=== PATIENT | female | born 1995 | race Two or more races ===

== ENCOUNTER → 2024-09-06 | Outpatient (CLI) | payer BC, SELFPAY ==
[2024-09-06 11:24] LABS: Basophils % (Auto) 0 % (0-2.5); Eosinophils # (Auto) 0.1 Thou/mm3 (0.0-0.5); Eosinophils % (Auto) 1 % (0-10); Hematocrit 36.5 % (36.0-46.0); Hemoglobin 12.1 g/dL (12.0-16.0); Immature Granulocytes % (Auto) 1 % (0-0); Immature Granulocytes Auto 0.07 Thou/mm3 (0.00-0.00); Lymphocytes # (Auto) 1.5 Thou/mm3 (1.0-4.8); Lymphocytes % (Auto) 15 % (10-50); Mean Corpuscular HGB Conc 33.2 g/dl (31.0-37.0); Mean Corpuscular Hemoglobin 30.5 pg (25.0-35.0); Mean Corpuscular Volume 92 fL (80-100); Monocytes # (Auto) 0.6 Thou/mm3 (0.0-0.8); Monocytes % (Auto) 6 % (0-12); Neutrophils # (Auto) 7.7 Thou/mm3 (1.8-7.7); Neutrophils % (Auto) 77 % (37-80); Nucleated Red Blood Cell % 0 /100 WBC (0); Platelet Count 211 Thou/mm3 (140-440); RDW Standard Deviation 41.6 fL (36.4-46.3); Red Blood Count 3.97 Miln/mm3 (4.00-5.20)
[2024-09-06 11:47] LABS: Alanine Aminotransferase 8 U/L (10-49); Albumin, Serum 4.1 gm/dL (3.5-5.0); Albumin/Globulin Ratio 1.6 (1.2-2.2); Alkaline Phosphatase 97 U/L (46-116); Amylase 74 U/L (30-118); Anion Gap 5 (7-16); Aspartate Amino Transferase 12 U/L (0-34); BUN/Creatinine Ratio 14 Ratio (12-20); Bilirubin,Total 0.3 mg/dL (0.3-1.2); Blood Urea Nitrogen 7 mg/dL (9-23); Calcium 9.3 mg/dL (8.3-10.6); Calcium (Corrected) 9.3 mg/dL (8.5-10.1); Carbon Dioxide 27.2 mMol/L (20.0-31.0); Chloride 107 mMol/L (98-107); Creatinine (Component) 0.5 mg/dL (0.6-1.3); Globulin 2.5 gm/dL (2.3-3.5); Glucose 94 mg/dL (74-106); Lipase 38 U/L (12-53); Osmolality,Calculated 275 (275-295); Potassium 3.8 mMol/L (3.4-5.1); Sodium 139 mMol/L (136-145); Total Protein 6.6 gm/dL (5.7-8.2); eGFR > 60 See Note
[2024-09-06 12:34] LABS: Syphilis Nonreactive (Nonreactive)
== END | disposition home or self-care (01) ==
LOC: COPL 10:25
PROVIDERS: PCP Physician Assistant Medical; Referring Provider Physician Assistant Medical; Visit Provider Physician Assistant Medical
DX: R10.11 Right upper quadrant pain (principal); Z34.83 Encounter for supervision of other normal pregnancy, third trimester
CPT/HCPCS: 36415; 80053; 82150; 83690; 85025; 86780

== ENCOUNTER → 2024-09-09 | Outpatient (CLI) | payer BC, SELFPAY ==
[2024-09-09 14:21] LABS: Urea Breath Test Positive (Negative)
== END | disposition home or self-care (01) ==
LOC: COPL 12:39
PROVIDERS: PCP Physician Assistant Medical; Referring Provider Physician Assistant Medical; Visit Provider Physician Assistant Medical
DX: R10.11 Right upper quadrant pain (principal)
CPT/HCPCS: 83013; 83014

== ENCOUNTER 2024-11-04 10:46 | Inpatient (IN) | payer BC, MEDICAID, SELFPAY ==
--- NOTE | 2024-10-26 01:27 | ESHP_ITS ---
RE: MORRIS ANDRES : 1995 DATE OF ADMISSION: 11/04/2024 HISTORY OF PRESENT ILLNESS: This is a 29-year-old 2, para 1 with a due date of 11/10/2024 with intrauterine at 39 weeks and 1 day who presents for repeat delivery. The patient reports normal movement. Denies any leaking or bleeding. She has occasional contractions. Her care was uncomplicated. ALLERGIES: NO KNOWN DRUG ALLERGIES. MEDICATIONS: multivitamin 1 tablet p.o. daily. PAST MEDICAL HISTORY: Migraine without aura, H. pylori gastritis treated 08/2024, gastroesophageal reflux disease. SOCIAL HISTORY: She denies any alcohol, drug use, or smoking. FAMILY HISTORY: Mother has asthma, father has diabetes and hypertension, paternal uncle has prostate cancer. OBSTETRIC HISTORY: 2022, 40-week delivery, 8 pounds 14 ounce male, no complications. PAST SURGICAL HISTORY: delivery in 2022. REVIEW OF SYSTEMS: She denies any chest pain, palpitations, cough, fever, shortness of breath, or lower extremity pain. She denies any headache, change in vision, or right upper quadrant pain. PHYSICAL EXAMINATION: VITAL SIGNS: Blood pressure is 110/70, heart rate 88, respirations 18, temperature 98.6. HEENT: Oropharynx and sclerae are clear. LUNGS: Clear to auscultation bilaterally. HEART: Regular rate and rhythm. ABDOMEN: Gravid, term size. Old Pfannenstiel scar noted. EXTREMITIES: Nontender. SKIN: No gross rashes or lesions. NEUROLOGIC: No focal deficit. ASSESSMENT: Intrauterine at 39 weeks and 1 day. Previous delivery, elects repeat delivery. PLAN: Repeat delivery. Informed consent was obtained. The patient was made aware of the risks, complications, alternatives, and benefits of the proposed procedure and she agrees. DT: 23:28:37 TT: 01:25:00 Ref: [id number] - TID: [id number] MTDD
[2024-11-01 10:52] LABS: Basophils % (Auto) 0 % (0-2.5); Eosinophils # (Auto) 0.1 Thou/mm3 (0.0-0.5); Eosinophils % (Auto) 1 % (0-10); Hematocrit 37.2 % (36.0-46.0); Hemoglobin 12.8 g/dL (12.0-16.0); Immature Granulocytes % (Auto) 1 % (0-0); Immature Granulocytes Auto 0.04 Thou/mm3 (0.00-0.00); Lymphocytes # (Auto) 1.4 Thou/mm3 (1.0-4.8); Lymphocytes % (Auto) 18 % (10-50); Mean Corpuscular HGB Conc 34.4 g/dl (31.0-37.0); Mean Corpuscular Hemoglobin 30.3 pg (25.0-35.0); Mean Corpuscular Volume 88 fL (80-100); Monocytes # (Auto) 0.5 Thou/mm3 (0.0-0.8); Monocytes % (Auto) 7 % (0-12); Neutrophils % (Auto) 74 % (37-80); Nucleated Red Blood Cell % 0 /100 WBC (0); Platelet Count 175 Thou/mm3 (140-440); RDW Standard Deviation 41.2 fL (36.4-46.3); Red Blood Count 4.22 Miln/mm3 (4.00-5.20); White Blood Count 8.1 Thou/mm3 (3.6-11.0)
[2024-11-01 10:57] LABS: Partial Thromboplastin Time 26.2 Seconds (22.0-36.0); Prothrombin Time 11.3 Seconds (9.0-12.2)
[2024-11-01 11:00] LABS: Alanine Aminotransferase 27 U/L (10-49); Albumin, Serum 3.8 gm/dL (3.5-5.0); Albumin/Globulin Ratio 1.7 (1.2-2.2); Alkaline Phosphatase 168 U/L (46-116); Anion Gap 9 (7-16); Aspartate Amino Transferase 28 U/L (0-34); BUN/Creatinine Ratio 10 Ratio (12-20); Bilirubin,Total 0.3 mg/dL (0.3-1.2); Blood Urea Nitrogen 6 mg/dL (9-23); Calcium (Corrected) 9.2 mg/dL (8.5-10.1); Chloride 105 mMol/L (98-107); Creatinine (Component) 0.6 mg/dL (0.6-1.3); Globulin 2.3 gm/dL (2.3-3.5); Glucose 117 mg/dL (74-106); Osmolality,Calculated 276 (275-295); Potassium 4.2 mMol/L (3.4-5.1); Sodium 139 mMol/L (136-145); Total Protein 6.1 gm/dL (5.7-8.2); eGFR > 60 See Note
[2024-11-01 11:15] LABS: Syphilis Nonreactive (Nonreactive)
[2024-11-04] VITALS (13 sets, daily range): BP systolic 104–123; BP diastolic 55–83; PULSE 66–98; RESP 12–20; TEMP 36.4–36.5; O2SAT 96–99; BMI 34.0
[2024-11-04 11:51] LABS: Basophils % (Auto) 0 % (0-2.5); Eosinophils # (Auto) 0.1 Thou/mm3 (0.0-0.5); Eosinophils % (Auto) 1 % (0-10); Hematocrit 38.2 % (36.0-46.0); Hemoglobin 13.1 g/dL (12.0-16.0); Immature Granulocytes % (Auto) 0 % (0-0); Immature Granulocytes Auto 0.04 Thou/mm3 (0.00-0.00); Lymphocytes # (Auto) 1.6 Thou/mm3 (1.0-4.8); Lymphocytes % (Auto) 15 % (10-50); Mean Corpuscular HGB Conc 34.3 g/dl (31.0-37.0); Mean Corpuscular Hemoglobin 30.3 pg (25.0-35.0); Mean Corpuscular Volume 88 fL (80-100); Monocytes # (Auto) 0.6 Thou/mm3 (0.0-0.8); Monocytes % (Auto) 6 % (0-12); Neutrophils # (Auto) 8.2 Thou/mm3 (1.8-7.7); Neutrophils % (Auto) 78 % (37-80); Nucleated Red Blood Cell % 0 /100 WBC (0); Platelet Count 169 Thou/mm3 (140-440); RDW Standard Deviation 40.8 fL (36.4-46.3); Red Blood Count 4.33 Miln/mm3 (4.00-5.20); White Blood Count 10.5 Thou/mm3 (3.6-11.0)
--- NOTE | 2024-11-04 12:20 | PD.LDANTE ---
Documentation for date of: 11/04/24 OB Labor/Induct. HPI History of Present Illness History of sections: Yes (2022) SATNAM: 11/10/24 Comments: [address] [id number] History and Physical Report Author: Clay Steward: MORRIS ANDRES : 1995 DATE OF ADMISSION: 11/04/2024 HISTORY OF PRESENT ILLNESS: This is a 29-year-old 2, para 1 with a due date of 11/10/2024 with intrauterine at 39 weeks and 1 day who presents for repeat delivery. The patient reports normal movement. Denies any leaking or bleeding. She has occasional contractions. Her care was uncomplicated. ALLERGIES: NO KNOWN DRUG ALLERGIES. MEDICATIONS: multivitamin 1 tablet p.o. daily. PAST MEDICAL HISTORY: Migraine without aura, H. pylori gastritis treated 08/2024, gastroesophageal reflux disease. SOCIAL HISTORY: She denies any alcohol, drug use, or smoking. FAMILY HISTORY: Mother has asthma, father has diabetes and hypertension, paternal uncle has prostate cancer. OBSTETRIC HISTORY: 2022, 40-week delivery, 8 pounds 14 ounce male, no complications. PAST SURGICAL HISTORY: delivery in 2022. REVIEW OF SYSTEMS: She denies any chest pain, palpitations, cough, fever, shortness of breath, or lower extremity pain. She denies any headache, change in vision, or right upper quadrant pain. PHYSICAL EXAMINATION: VITAL SIGNS: Blood pressure is 110/70, heart rate 88, respirations 18, temperature 98.6. HEENT: Oropharynx and sclerae are clear. LUNGS: Clear to auscultation bilaterally. HEART: Regular rate and rhythm. ABDOMEN: Gravid, term size. Old Pfannenstiel scar noted. EXTREMITIES: Nontender. SKIN: No gross rashes or lesions. NEUROLOGIC: No focal deficit. ASSESSMENT: Intrauterine at 39 weeks and 1 day. Previous delivery, elects repeat delivery. PLAN: Repeat delivery. Informed consent was obtained. The patient was made aware of the risks, complications, alternatives, and benefits of the proposed procedure and she agrees. DT: 23:28:37 TT: 01:25:00 Ref: [id number] - TID: [id number] CC: Cr Jarquin PA-C; ~ Dictated by:Clay Steward MD 10/25/24 1501 E-signed by:Clay Steward MD 11/03/24 111 E-Signed by: E-Signed by: Labs Labs: Negative: RPR, Hepatitis B, Rubella Titre, HIV, Chlamydia, Gonorrhea and Group Beta Strep and Unknown: Herpes Type 1, Herpes Type 2 and Covid-19 Past Medical History Surgical History SURGICAL: Positive Section (2022) Meds Home Medications and Allergies Home Medications ?Medication ?Instructions ?Recorded ?Confirmed ?Type vit no.95-ferrous 1 tab PO DAILY 10/08/22 10/08/22 History fumarate 28 mg-folic acid 800 mcg tablet () Allergies Allergy/AdvReac Type Severity Reaction Status Date / Time No Known Allergies Allergy Verified 10/08/22 21:09 OB Exam Physical Exam Vital signs: Pulse BP 85 123/56 L 11/04/24 11:05 11/04/24 11:05 OB Results Labs 11/04/24 11:20 11/01/24 10:00 Labs: Short CBC 11/04/24 Range/Units 11:20 WBC 10.5 (3.6-11.0) Thou/mm3 Hgb 13.1 (12.0-16.0) g/dL Hct 38.2 (36.0-46.0) % Plt Count 169 (140-440) Thou/mm3
[2024-11-04] MEDS: FAMOTIDINE INJ 10 MG/ML VIAL 2 ML 20 MG IV (12:23)
[2024-11-04] MEDS: METOCLOPRAMIDE INJ 5 MG/ML VIAL 2 ML 10 MG IVP (12:23)
[2024-11-04] MEDS: ceFAZolin/D5W 2 GM IV 2 GM/100 ML BAG IV (12:23)
[2024-11-04 12:24] LABS: Syphilis Nonreactive (Nonreactive)
[2024-11-04 12:26] LABS: Amphetamine/Metham Scrn,Ur OB Negative (Negative); Benzoylecgonine Screen, Ur OB Negative (Negative); Opiate Screen,Urine OB Negative (Negative); THC Screen,Urine OB Negative (Negative)
--- NOTE | 2024-11-04 12:39 | ESDS_ITS ---
DS: Providers Provider Date of admission: 11/04/24 10:46 Primary care physician: Cr Jarquin PA-C Admitting Provider: Clay Steward MD Attending Provider on Admission: Clay Steward MD Attending Provider on DC: Clay Steward MD Discharging Provider: Clay Steward MD DS: Diagnosis Problem List Completed Was Problem List Reviewed/Reconciled?: Yes Summary/Hosp Course Peripartum Data Procedures: Procedures Operation Date: 11/04/24 12:45 <No data on this case meets the specified criteria> Time Spent with Patient Time attestation: Total time spent providing and/or coordinating discharge services: Exam Vital Signs Pulse BP 85 123/56 L 11/04/24 11:05 11/04/24 11:05 Discharge Plan Plan Patient Disposition: HOME (Self Care) Patient condition on transfer: Stable Prescriptions/Referrals Prescriptions/Med Rec: New ibuprofen 600 mg tablet 600 mg PO Q6H PRN (Reason: pain) Qty: 30 0RF Continued PNV cmb#95-ferrous fumarate-FA [] 28 mg iron- 800 mcg tablet 1 tab PO DAILY Discontinued ibuprofen 600 mg tablet 600 mg PO Q6H PRN (Reason: pain) Qty: 30 0RF Referrals: Cr Jarquin PA-C [Primary Care Provider] - Patient/Caregiver Discharge Instructions Discharge Activity: activity as tolerated Other Discharge Activity Instructions:: Follow up office 1 week Education Materials: : Caring for Yourself, C Section Dc Print Language: Romansh Activity Restrictions/Additional Instructions: office follow up in one week for incision care Stand Alone Forms: Jessie Award Info., Patient Portal Info Letter Discharge Order Discharge Orders: Discharge (Routine); Ordered 11/06/24 Ordered By: Clay Steward Planned Discharge Date 11/06/24
--- NOTE | 2024-11-04 12:39 | ESOP_ITS ---
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 Indication: IUP 39w1d by best dates. Prior delivery Elects repeat delivery Pre-Op diagnosis: Intrauterine at 39 weeks and 1 day Prior delivery Elective repeat delivery Post-Op diagnosis: Intrauterine at 39 weeks and 1 day Previous delivery Elects repeat delivery Anesthesia type: Spinal Procedure description: After proper informed consent was obtained and the patient was made aware of the risks, complications, alternatives and benefits of the proposed procedure she was taken to the operating room where she underwent induction of spinal anesthesia. She was prepped and draped in the usual sterile fashion. A timeout was performed.? A Pfannenstiel skin incision was made with the scalpel and carried through to the underlying layer of fascia with the Bovie. The fascia was nicked in the midline incision and the incision was extended bilaterally with the Bovie. The inferior aspect of the fascial incision was grasped with Clyde clamps elevated and the underlying rectus muscle dissected off with the Bovie. The superior aspect the fascial incision was grasped with Clyde clamps elevated and the underlying rectus muscle dissected off with the Bovie. The rectus muscles were in the midline. The peritoneum was grasped between 2 Valenzuela clamps and entered sharply with the Metzenbaum scissors. The peritoneum was extended superiorly and inferiorly with good visualization of the bladder. The vesicouterine peritoneum was incised transversely and the bladder flap created digitally. A Elberon blade was inserted. A low transverse incision was made in the uterus with a scapel and the incision was extended digitally. The 's head delivered and the mouth and nose were suctioned with the bulb suction. The shoulder and body delivered atraumatically. The cord was clamped after 30 second delayed cord clamping and the cord was cut.? The was handed off to the waiting Pediatric staff, cord blood was collected for lab testing. The placenta was removed complete and intact. The uterus was exteriorized and cleared of all clots and debris. The uterine incision was closed with #1-0 chromic catgut suture in a running interlocking fashion. A second layer of the same suture was used to imbricate the first layer and obtain excellent hemostasis. The vesicouterine peritoneum was closed with 2-0 chromic catgut suture in a running fashion. The firm uterus was returned to the abdomen. The gutters were cleared of all clots and debris. The peritoneum was closed with 0 chromic catgut suture in running fashion. The rectus muscle was closed with 0 chromic catgut suture. The fascia was closed with 0 Vicryl beginning at each angle and ending in the center in a running fashion. The subcutaneous tissue was irrigated with warmed normal saline solution and found to be hemostatic. The subcutaneous tissue was closed with 2-0 chromic catgut suture in a running fashion. The skin was closed with 4-0 Monocryl. A Dermabond Prineo dressing was applied and a sterile pressure dressing was applied.? She tolerated the procedure well. Counts were correct. I discussed with the patient the nature of her condition, intraoperative findings and expectation for recovery all? questions answered. Specimen: none Findings: Live Apgars 9/9 Clear amniotic fluid Placenta removed complete intact Uterus ovaries and tubes grossly within normal limits Complications: none Surgical staff STEWART Padilla Operation Date: 11/04/24 12:45 <No data on this case meets the specified criteria> Diagnosis Discharge Diagnosis (1) 39 weeks gestation of : Status: Acute (2) Previous section: Status: Acute Problem List Completed Was Problem List Reviewed/Reconciled?: Yes
--- NOTE | 2024-11-04 13:27 | PD.LDDELS ---
Data ([place]) Data Hx Section: Yes (2022) : 2 Delivery Data ([place]) Labor Data Induction/Augmentation Agent: None ROM date: 11/04/24 ROM time: 13:01 Amniotic membrane rupture type: Artificial Amniotic fluid description: Clear Delivery Data EDC: 11/10/24 EDC calculated by:: LMP/early US confirmation [place] delivery date: 11/04/24 delivery time: 13:02 Gestational age (weeks): 39 Gestational age (days): 1 Placenta delivery date: 11/04/24 Placenta delivery time: 13:03 Delivered by: [place] Delivery nurse: Caron Jaime nurse: Eun US Copier Field Service Technician at delivery: Yes (Dr. Tinoco) Support person(s) at delivery: Gorge Kirk Other staff at delivery: MOBILE GAME ENGINEER: Daisy Financial Services Representative Students: Tangela Cox Delivery Method Delivery method: Low Transverse Presentation: Vertex position: OA Anesthesia Type Anesthesia Type: Spinal Anesthesia type: Spinal Placenta Placenta delivery description: Manual Removal Cord blood sent to lab: Yes cord blood collection: Cord Blood Type Episiotomy Episiotomy description: None EBL Estimated blood loss (ml): 500 Umbilical Cord cord description: 3 Vessels and Nuchal Cord Additional Procedures None Complications Complications: None Data ([place]) Data 's gender: Female Identification band number: [id number] weight (gms): 8 lb 1.455 oz Weight (pounds): 8 lbs and 1.5 ozs length: 9 in 1 minute: 9 5 minutes: 9
[2024-11-04] MEDS: OXYTOCIN in NS 20 units 20 UNIT/1,000 ML BAG 125 UNIT IV ×2 (14:13→22:46)
[2024-11-04] MEDS: ONDANSETRON INJ 2 MG/ML INJ 2 ML 4 MG IV (14:59)
[2024-11-04 19:53] LABS: Basophils % (Auto) 0 % (0-2.5); Eosinophils % (Auto) 0 % (0-10); Hematocrit 36.5 % (36.0-46.0); Hemoglobin 12.6 g/dL (12.0-16.0); Immature Granulocytes % (Auto) 0 % (0-0); Immature Granulocytes Auto 0.07 Thou/mm3 (0.00-0.00); Lymphocytes # (Auto) 1.1 Thou/mm3 (1.0-4.8); Lymphocytes % (Auto) 7 % (10-50); Mean Corpuscular HGB Conc 34.5 g/dl (31.0-37.0); Mean Corpuscular Hemoglobin 30.8 pg (25.0-35.0); Mean Corpuscular Volume 89 fL (80-100); Monocytes % (Auto) 6 % (0-12); Neutrophils # (Auto) 13.7 Thou/mm3 (1.8-7.7); Neutrophils % (Auto) 86 % (37-80); Nucleated Red Blood Cell % 0 /100 WBC (0); Platelet Count 155 Thou/mm3 (140-440); RDW Standard Deviation 41.1 fL (36.4-46.3); Red Blood Count 4.09 Miln/mm3 (4.00-5.20); White Blood Count 15.9 Thou/mm3 (3.6-11.0)
[2024-11-04] MEDS: KETOROLAC INJ 30 MG/ML VIAL IVP (20:42)
[2024-11-04] MEDS: PROMETHAZINE INJ 25 MG/ML VIAL IM (21:10)
[2024-11-05] VITALS (7 sets, daily range): BP systolic 94–116; BP diastolic 61–77; PULSE 72–97; RESP 14–18; TEMP 36.4–36.9; O2SAT 97–99
--- NOTE | 2024-11-05 07:31 | ESPR_ITS ---
Subjective Subjective Interval history: Patient denies any problem or complaint. She says she has not voided since the Trejo catheter was removed. She does not feel the urge to void. She is passing flatus. She is tolerating a regular diet. She denies any excessive vaginal bleeding. She denies any dizziness or lightheadedness. She denies any chest pain palpitation shortness of breath or lower extremity pain. Exam Vital Signs Temp Pulse Resp BP Pulse Ox O2 Del Method 97.6 F 80 16 99/65 97 Room Air 11/05/24 04:08 11/05/24 04:08 11/05/24 04:08 11/05/24 04:08 11/05/24 04:08 11/05/24 04:08 Routine Respiratory Exam Comments: Clear to auscultation bilaterally Routine Cardiovascular Exam Comments: Regular rate and rhythm Routine Abdominal Exam Comments: Dressing dry and intact Routine Extremities Exam Comments: Nontender Objective Labs 11/04/24 19:21 11/01/24 10:00 Labs: Laboratory Results - last 24 hr 11/04/24 11/04/24 11/04/24 11:20 11:50 19:21 WBC 10.5 15.9 H D RBC 4.33 4.09 Hgb 13.1 12.6 Hct 38.2 36.5 MCV 88 89 MCH 30.3 30.8 MCHC 34.3 34.5 RDW Std Deviation 40.8 41.1 Plt Count 169 155 Neut % (Auto) 78 86 H Lymph % (Auto) 15 7 L Mclennan % (Auto) 6 6 Eos % (Auto) 1 0 Baso % (Auto) 0 0 Neut # (Auto) 8.2 H 13.7 H Lymph # (Auto) 1.6 1.1 Mclennan # (Auto) 0.6 1.0 H Eos # (Auto) 0.1 0.0 Baso # (Auto) 0.0 0.0 Immature Gran # (Auto) 0.04 H 0.07 H Absolute Nucleated RBC 0.00 0.00 Immature Gran % 0 0 Nucleated RBC % 0 0 Urine Opiates Screen Negative U Amphetamin/Meth Scrn Negative U Cocaine Metab Screen Negative U Marijuana (THC) Screen Negative Syphilis Serology Nonreactive Blood Type B Positive Antibody Screen NEGATIVE Blood Bank Wristband ID Yes Assessment & Plan Problem List (1) 39 weeks gestation of : Status: Acute (2) Previous section: Status: Acute Assessment and plan: Postop day #1 status post delivery without complication Monitor for spontaneous voiding and place catheter if needed Remove dressing Discontinue intravenous fluids Encourage ambulation optimization consultant Possible discharge home tomorrow Time Spent With Patient Time: Total time spent is greater than 50% in coordination of care (as documented) at patient's floor/unit and/or counseling patient:
[2024-11-05] MEDS: ENOXAPARIN SOD INJ 40 MG/0.4 ML SYRINGE SC (08:43)
[2024-11-05] MEDS: KETOROLAC INJ 30 MG/ML VIAL IVP ×2 (08:43→16:34)
[2024-11-05] MEDS: IBUPROFEN TAB 400 MG TABLET 800 MG PO (21:13)
[2024-11-06 04:00] VITALS: BP 110/72; PULSE 77; RESP 18; TEMP 36.7; O2SAT 97
[2024-11-06] MEDS: HYDROcodone/APAP 5/325 TABLET 1 TAB PO ×2 (04:23→12:06)
[2024-11-06] MEDS: RINGERS LACTATED 1000 ML 1,000 ML 100 ML IV (04:38)
--- NOTE | 2024-11-06 07:04 | ESPR_ITS ---
RE: MORRIS ANDRES : 1995 DATE OF SERVICE: 11/06/2024 Postop day #2. The patient denies any problem or complaint. She is voiding. She is ambulating. She is tolerating diet. She is passing flatus. She denies any excessive vaginal bleeding. She denies any dizziness or lightheadedness. She denies any chest pain, palpitations, shortness of breath or lower extremity pain. OBJECTIVE: Vital Signs: Blood pressure 110/72, heart rate 77, respirations 18, temperature is 98.1, pulse oximetry is 97% on room air. Lungs: Clear to auscultation bilaterally. Heart: Regular rate and rhythm. Abdomen: Nondistended. Incision clear and intact. Fundus is firm. Extremities: Nontender. ASSESSMENT: Postoperative day #2, status post delivery. PLAN: Discharge home. Discharge instructions given. Follow up in the office in 1 week. DT: 06:19:49 TT: 07:03:00 Ref: [id number] - TID: [id number]
--- NOTE | 2024-11-06 07:37 | CHAP ---
Patient was visited by a Spiritual Care Volunteer on 11/05/2024 between 0804 and 1120 and received comfort, encouragement, and/or prayer. The family also received a blessing on and family.
[2024-11-06 08:00] VITALS: BP 107/75; PULSE 90; RESP 16; TEMP 36.8; O2SAT 97
--- NOTE | 2024-11-06 08:36 | PC.SS ---
SS conducted bedside contact with the patient to address nursing referral indicating that patient was late to care.? SS introduced self and role.? SS asked for permission to speak in front of family member.? Patient agreed.? Patient states she was late to care because once she found out she was she had a difficult time scheduling an appointment early due to the office being booked. Patient received care under the care of Dr. Steward. Female NB, Kassandra, is patient?s second child. ?NB was born on 11-04-2025 -via .? Age of other child in home is 2 years old. FOB is Gorge Kirk. FOB is involved and resides in the home. Patient states she plans on breast feeding. Patient denies history of drugs or alcohol.? Patient denies any history of mental illness, CWS or DV. ?Patient is not aligned with WIC, FS or TANF. Patient is currently employed at the [employer]. deputy sheriff court services provided resources to include:? [employer], [employer] and community numbers. Patient has access to appropriate supplies and equipment.? Patient has access to a car seat.? Patient describes possessing support system consisting of spouse, family and friends. Family to provide transportation home. No further intervention required at this time. Screen Tender Helper will be available to address any further concerns. SS updated bedside nurse. Patient to be discharged home today.
[2024-11-06] MEDS: ENOXAPARIN SOD INJ 40 MG/0.4 ML SYRINGE SC (08:46)
[2024-11-06] MEDS: Milk Of Magnesia Susp 30 ML UDC PO (11:11)
== END 2024-11-06 14:55 | disposition home or self-care (01) | DRG 788 ==
LOC: S4SX 12:35 → S4NX 12:37
PROVIDERS: Admitting Provider Specialist; PCP Physician Assistant Medical; Visit Provider Obstetrics & Gynecology
PROC: 10D00Z1 Extraction of Products of Conception, Low, Open Approach (ICD-10-PCS; CPT 59514; principal; 2024-11-04 12:30)
DX: O34.211 Maternal care for low transverse scar from previous cesarean delivery (principal); Z37.0 Single live birth; Z3A.39 39 weeks gestation of pregnancy; O69.81X0 Labor and delivery complicated by cord around neck, without compression, not applicable or unspecified
CPT/HCPCS: 36415; 59409; 80053; 80307; 85025; 85610; 85730; 86780; 86850; 86900; 86901; 94762; A4314; A4649; J0689; J1650; J1885; J2250; J2274; J2371; J2405; J2550; J2590; J2704; J2765; J3010; J3490; J7120; A9270; J2270

== ENCOUNTER 2025-05-13 15:27 | Emergency (ER) | payer MEDICAID, SELFPAY ==
[2025-05-13 15:51] VITALS: BP 126/82; PULSE 96; RESP 18; TEMP 36.6; O2SAT 97
--- NOTE | 2025-05-13 15:56 | XR_ITS ---
Examination: CT brain head without contrast. 2-D sagittal coronal reconstructions Date and time of exam: May 13, 2025, 1631 hours INDICATIONS: Generalized head pain today CTDI: vol (mGy): 52.4 DLP: (mGycm): 1040 Technique: Multiple CT axial sections of the brain have been obtained, 5 mm slice thickness. Contrast has not been administered. 2-D sagittal, coronal reconstructions have been obtained Low dose protocols were performed. One or more of the following dose reduction techniques were used; automated exposure control, adjustment of the mA and/or KV according to patient size, use of iterative reconstruction technique. Findings: No significant ventricular enlargement. Intra-axial or extra-axial hemorrhage density is not seen. No mass effect or midline shift Basal cisterns are not remarkable. Fourth ventricle is midline. Cranial vault intact. Impression: Negative for acute hemorrhage, mass effect or midline shift Advise clinical correlation and follow-up accordingly
--- NOTE | 2025-05-13 15:57 | PD.EDHA ---
ED Headache RME/HPI General Chief Complaint: Headache Stated Complaint: SWOLLEN LYMPH NODES, COLÓN Time Seen by Provider: 05/13/25 15:40 Arrival date/time: 05/13/25 15:27 29-year-old female presents to the Emergency Department for complaints of headache patient reports symptom onset 2 days ago reports symptoms revolved and then returned once again patient reports no fever nausea or vomiting Limitations: no limitations Related Data Home Medications ?Medication ?Instructions ?Recorded ?Confirmed vit no.95-ferrous 1 tab PO DAILY 10/08/22 10/08/22 fumarate 28 mg-folic acid 800 mcg tablet () Previous Rx's ?Medication ?Instructions ?Recorded ibuprofen 600 mg tablet 600 mg PO Q6H PRN pain #30 tabs 11/06/24 acetaminophen-caffeine 500 mg-65 1 tab PO Q6H PRN pain #30 tabs 05/13/25 mg tablet (Excedrin Tension Headache) ibuprofen 800 mg tablet 800 mg PO TID PRN pain #30 tabs 05/13/25 Allergies Allergy/AdvReac Type Severity Reaction Status Date / Time No Known Allergies Allergy Verified 05/13/25 15:30 Review of Systems Review of Systems Systems Reviewed: All systems reviewed, normal except as documented Constitutional Constitutional: Reports system reviewed and no additional complaints, except as documented, Denies fever(s) and Reports headache(s) Eyes Eyes: Reports system reviewed and no additional complaints, except as documented and Denies blurry vision ENT Ears, Nose, Mouth, and Throat: Reports system reviewed and no additional complaints, except as documented, Reports headache(s), Denies nasal congestion and Denies nasal discharge Cardiovascular Cardiovascular: Reports system reviewed and no additional complaints, except as documented, Denies chest pain and Denies dyspnea Respiratory Respiratory: Reports system reviewed and no additional complaints, except as documented, Denies chest congestion, Denies cough and Denies dyspnea Gastrointestinal Gastrointestinal: Reports system reviewed and no additional complaints, except as documented and Denies abdominal pain Integumentary/Breasts Skin/Breast: Reports system reviewed and no additional complaints, except as documented and Denies rash Neurologic Neurologic: Reports system reviewed and no additional complaints, except as documented, Reports as per HPI and Reports headache(s) Past Medical History Past Medical History NEUROLOGIC: Negative Neurological Disorders or Seizures CARDIAC: Negative Cardiac Disorders or Congestive Heart Failure RESPIRATORY: Negative Chronic Obstructive Pulmonary Disease (COPD) GASTROINTESTINAL: Negative Gastrointestinal Disorders or Hepatitis GENITOURINARY: Negative Genitourinary Disorders or Renal Disease REPRODUCTIVE: Positive Previous Pregnancies; Negative Endometriosis, Genital Herpes, Gonorrhea, Pelvic Inflammatory Disease, Syphilis or Uterine Prolapse MUSCULOSKELETAL: Negative Musculoskeletal Disorders ENDOCRINE: Negative Endocrine Disorders, Diabetes Mellitus Type 1 or Diabetes Mellitus Type 2 HEMATOLOGIC: Negative Blood Disorders or Anemia OTHER HISTORY: Positive Chicken Pox; Negative Hospitalization, Autoimmune Disease, Down Syndrome, Developmental Delay, Shingles, Falls, Blood Transfusions, Blood Transfusion Reaction, Anesthesia Reactions, Organ Transplant, Chemotherapy, Radiation Therapy, Hyperbaric Therapy, MRSA, VRSA, Vancomycin-Resistant Enterococci, Human Immunodeficiency Virus (HIV), Measles, Mumps, Rubella ([place] Measles), Pertussis, Clostridium Difficile or Cancer Family History FAMILY HISTORY: Positive Family Cardiac Disorders (Mother HTN) and Family Cancer (paternal grandfather- ca); Negative Family Psychiatric Problems, Family Respiratory Disorders, Family Gastrointestinal Problems, Family Surgery or Family Anesthesia Reaction Surgical History SURGICAL: Positive Section (2022); Negative Cardiac Surgery, Endocrine Surgery, Ear Surgery, Abdominal Surgery, Nephrectomy, Joint Replacement, Neurologic Surgery, Lumpectomy or Organ Transplant Social History SMOKING STATUS: Never smoker SECOND HAND EXPOSURE: No ED Exam General Limitations: Present no limitations General appearance: Present alert and in no apparent distress Head Head exam: Present atraumatic, normocephalic and normal inspection Eye Eye exam: Present normal appearance, PERRL and EOMI; Absent conjunctival injection ENT ENT exam: Present normal exam, normal oropharynx and mucous membranes moist Neck Neck exam: Present normal inspection, full ROM and trachea midline; Absent meningismus, lymphadenopathy or thyromegaly Chest Chest inspection: Present normal inspection and symmetric chest wall rise Respiratory Respiratory exam: Present normal lung sounds bilaterally; Absent respiratory distress Cardiovascular Cardiovascular exam: Present regular rate, normal rhythm and normal heart sounds Abdominal Exam Abdominal exam: Present soft and normal bowel sounds Extremities Exam Extremities exam: Present normal inspection and full ROM Back Exam Back exam: Present normal inspection and full ROM Neurological Exam Neurological exam: Present alert, oriented X3 and CN II-XII intact Psychiatric Psychiatric exam: Present normal affect and normal mood Skin Skin exam: Present warm, dry, intact and normal color Course Quality Measures none Orders Category Date Time Status CT head/brain wo con Stat Exams 05/13/25 15:56 Completed Vital Signs Vital signs: Vital Signs Temperature 97.8 F 05/13/25 15:51 Pulse Rate 96 05/13/25 15:51 Respiratory Rate 18 05/13/25 15:51 Blood Pressure 126/82 05/13/25 15:51 Pulse Oximetry (%) 97 05/13/25 15:51 Oxygen Delivery Method Room Air 05/13/25 15:51 O2 saturation 97% r.a wnl Headache MDM Narrative MDM Narrative:: 29-year-old female presents to the Emergency Department for complaints of headache patient reports symptom onset 2 days ago reports symptoms revolved and then returned once again patient reports no fever nausea or vomiting Clinically patient well-appearing does not appear ill or toxic no acute distress Imaging of the head obtained no acute emergent findings noted Patient has no abnormal neurological findings no meningeal signs no tenderness of the neck Patient discharged home in no distress to follow-up with primary care doctor in the next 24 to 48 hours and for any worsening symptoms to return to the ER immediately Patient data External records reviewed:: [facility] previous records Clinical information provided by:: patient Social determinants that could affect healthcare access:: none Patient has the following chronic illnesses:: None How is presenting disease/condition affected by chronic disease/condition?: no chronic disease Evaluation data The following diagnostics were reviewed and interpreted by me:: other (specify) Lab and/or radiology exams considered but not ordered:: Considered not ordered Interpretation Summary: N/A Medications / Prescriptions Medications or Prescriptions considered but not ordered:: Given Medication administrations:: Given Consultations Consultation(s) initiated? (list below): No Diagnosis Differential diagnosis headache: migraine, tension headache, subarachnoid hemorrhage and headache Most likely diagnosis given after review of the tests above:: Headache Admission Indicated Admission indicated?: not indicated Admission Request Was there a request for admission?: No Disposition Plan Disposition Plan: Discharge Discharge Attestation Discharge Attestation: The patient and all family members were given an opportunity to ask questions and understood the discharge instructions. Discharge instructions specifically effects, indications for sooner follow up or return to the emergency department, and the expected course of current diagnosis. Patient condition: Stable Discharge Plan Plan Patient Disposition: HOME (Self Care) Discharge Disposition comment: Stable Prescriptions/Referrals Prescriptions/Med Rec: New Excedrin Tension Headache 500-65 mg tablet 1 tab PO Q6H PRN (Reason: pain) Qty: 30 0RF ibuprofen 800 mg tablet 800 mg PO TID PRN (Reason: pain) Qty: 30 0RF No Action PNV no.95-ferrous fumarate-FA [] 28 mg iron- 800 mcg tablet 1 tab PO DAILY ibuprofen 600 mg tablet 600 mg PO Q6H PRN (Reason: pain) Qty: 30 0RF Referrals: Clay Valdez PA-C [Primary Care Provider] - 05/15/25 Problem List Clinical Impression: Headache Patient/Caregiver Discharge Instructions Education Materials: Self-Care for Headaches Additional Instructions: Please follow up with your primary care doctor in the next 24-48hrs for any worsening symptoms return here immediately Print Language: [place]se Stand Alone Forms: Jessie Award Info., Work/School Release, Patient Portal Info Letter PA/LIBRARY MONITOR Supervising Physician PA/ESTEFANÍA Supervising Physician: Dr. [email or web address]
== END 2025-05-13 19:05 | disposition home or self-care (01) ==
PROVIDERS: Emergency Provider Family Medicine; PCP Physician Assistant Medical
DX: R51.9 Headache, unspecified (principal)
CPT/HCPCS: 70450; 99282